=== PATIENT | female | born 1945 | race Caucasian/White ===

== ENCOUNTER 2017-07-14 12:14 | Emergency (ER) | payer MEDICARE, OTHER ==
[~2017-07-14] VITALS: Ht 152.4 cm; Wt 65.0 kg
[2017-07-14] MEDS ORDERED: SODIUM CHLORIDE FLUSH 10ML SYR IVF ONE (12:30)
[2017-07-14 12:46] LABS: HEMATOCRIT 50.4 % (34.6-47.8); HEMOGLOBIN 16.8 g/dL (11.7-16.4); WHITE BLOOD COUNT 7.9 x10^3/uL (3.4-10)
[2017-07-14 12:54] LABS: BLOOD UREA NITROGEN 18 mg/dL (7-18)
[2017-07-14 12:57] LABS: ASPARTATE AMINO TRANSFERASE 59 U/L (15-37); IS PT STATUS REG ER OR PRE ER? YES
[2017-07-14] MEDS ORDERED: PLEASE ENTER ALLERGIES MC SCH ×2 (13:00)
[2017-07-14] MEDS ORDERED: PLEASE ENTER HEIGHT AND WEIGHT MC SCH (13:00)
[2017-07-14 14:52] VITALS: BP 123/84
== END 2017-07-14 14:54 | disposition home or self-care (01) ==
LOC: ED 14:26
DX: I47.1 Supraventricular tachycardia (principal); J44.9 Chronic obstructive pulmonary disease, unspecified
CPT/HCPCS: 36415; 71010; 80053; 81003; 83880; 84484; 85025; 85610; 85730; 93005; 99285

== ENCOUNTER 2017-10-09 03:32 | Inpatient (IN) | payer MEDICARE ==
[~2017-10-09] VITALS: Ht 152.4 cm; Wt 74.5 kg
[2017-10-09] MEDS ORDERED: ALBUTEROL/IPRATROPIUM 2.5MG/0.5MG, 3 ML ONE (03:59)
[2017-10-09] MEDS ORDERED: methylPREDNISolone SOD SUCC 125 MG/2 ML IVP ONE (04:00)
[2017-10-09] MEDS ORDERED: SODIUM CHLORIDE 0.9% 1,000ML IVBOLUS ONE (04:00)
[2017-10-09] MEDS ORDERED: ALBUTEROL/IPRATROPIUM 2.5MG/0.5MG, 3 ML NPPB SCH ×2 (04:00→07:00)
[2017-10-09 04:07] LABS: HEMOGLOBIN 16.1 g/dL (11.7-16.4); WHITE BLOOD COUNT 8.5 x10^3/uL (3.4-10)
[2017-10-09] MEDS ORDERED: methylPREDNISolone SOD SUCC 125 MG/2 ML ONE ×2 (04:11→05:40)
[2017-10-09 04:20] LABS: BLOOD UREA NITROGEN 15 mg/dL (7-18)
[2017-10-09 04:25] LABS: IS PT STATUS REG ER OR PRE ER? YES
[2017-10-09] MEDS ORDERED: methylPREDNISolone SOD SUCC 40 MG/ML IVPush SCH (05:30)
[2017-10-09] MEDS: ENOXAPARIN 40 MG/0.4 ML SQ SCH (05:30)
[2017-10-09] MEDS ORDERED: LORazepam 1MG TABLET PO PRN (05:30)
[2017-10-09] MEDS ORDERED: LEVOFLOXACIN/PMX 500MG/100ML 100 ML ONE (05:30)
[2017-10-09] MEDS ORDERED: GUAIFENESIN/DM 200-20MG, 10ML UDC PO PRN (05:30)
[2017-10-09] MEDS ORDERED: ONDANSETRON 2MG/ML, 2ML IVPush PRN (05:30)
[2017-10-09] MEDS ORDERED: ACETAMINOPHEN 325 MG TABLET PO PRN (05:30)
[2017-10-09] MEDS ORDERED: hydrALAzine 20 MG/ML, 1ML IVPush PRN (05:30)
[2017-10-09] MEDS: LEVOFLOXACIN/PMX 500MG/100ML 100 ML IVPB SCH (05:30)
[2017-10-09] MEDS ORDERED: AZIT500T5 PO (07:47)
[2017-10-09] MEDS ORDERED: metoprolol ER PO (07:47)
[2017-10-09] MEDS ORDERED: IBUP-1484 PO (07:47)
[2017-10-09] MEDS ORDERED: CYCL5TAB PO (07:47)
[2017-10-09] MEDS: METOPROLOL SUCCINATE 50 MG TAB.ER.24H PO SCH (07:52)
[2017-10-09 08:04] VITALS: BP 126/75
[2017-10-09] MEDS: methylPREDNISolone SOD SUCC 125 MG/2 ML IVPush SCH ×2 (10:58→17:03)
[2017-10-09] MEDS: SODIUM CHLORIDE FLUSH 10ML SYR IVF SCH ×2 (10:58→21:00)
[2017-10-09 14:00] VITALS: BP 149/89
[2017-10-09 20:00] VITALS: BP 131/75
[2017-10-09] MEDS: ALBUTEROL/IPRATROPIUM 2.5MG/0.5MG, 3 ML NPPB PRN (21:43)
[2017-10-10 02:00] VITALS: BP 123/77
[2017-10-10] MEDS: methylPREDNISolone SOD SUCC 125 MG/2 ML IVPush SCH ×2 (02:20→09:07)
[2017-10-10] MEDS: ENOXAPARIN 40 MG/0.4 ML SQ SCH (05:30)
[2017-10-10] MEDS: LEVOFLOXACIN/PMX 500MG/100ML 100 ML IVPB SCH (05:42)
[2017-10-10] MEDS: METOPROLOL SUCCINATE 50 MG TAB.ER.24H PO SCH (05:55)
[2017-10-10 07:37] VITALS: BP 132/84
[2017-10-10] MEDS: SODIUM CHLORIDE FLUSH 10ML SYR IVF SCH (09:07)
[2017-10-10] MEDS: ALBUTEROL/IPRATROPIUM 2.5MG/0.5MG, 3 ML NPPB PRN (10:51)
[2017-10-10] MEDS ORDERED: PRED20TA PO (13:32)
== END 2017-10-10 16:00 | disposition home or self-care (01) | DRG 189 ==
LOC: ED 04:05 → EDIP 05:18 → 4EST 08:01 → DCLOUNGE 10-10 15:48
PROVIDERS: ADMIT Family Medicine; ATTEND Internal Medicine
DX: J96.01 Acute respiratory failure with hypoxia (principal); J44.1 Chronic obstructive pulmonary disease with (acute) exacerbation; E78.5 Hyperlipidemia, unspecified; Z82.5 Family history of asthma and other chronic lower respiratory diseases; Z87.891 Personal history of nicotine dependence; Z88.5 Allergy status to narcotic agent; Z88.0 Allergy status to penicillin; Z88.2 Allergy status to sulfonamides; Z90.49 Acquired absence of other specified parts of digestive tract
CPT/HCPCS: 36415; 71010; 80048; 82040; 84484; 85025; 93005; 94640; 96361; 96374; 96375; J1956; J7620; J2920; J2930; J7030

== ENCOUNTER 2017-10-12 01:52 | Emergency (ER) | payer MEDICARE ==
[~2017-10-12] VITALS: Ht 152.4 cm; Wt 70.0 kg
[~2017-10-12 01:52] MED LIST: AZIT500T5 PO; CYCL5TAB PO; IBUP-1484 PO; PRED20TA PO; metoprolol ER PO
[2017-10-12] MEDS ORDERED: ALBUTEROL/IPRATROPIUM 2.5MG/0.5MG, 3 ML NPPB ONE (02:30)
[2017-10-12] MEDS ORDERED: ALBUTEROL/IPRATROPIUM 2.5MG/0.5MG, 3 ML NPPB PRN (02:30)
[2017-10-12] MEDS ORDERED: GUAIFENESIN 100 MG/5 ML, 5ML UDC PO ONE (03:30)
[2017-10-12] MEDS ORDERED: HYDROcodone/APAP 7.5-325MG/15ML UDC PO ONE (04:00)
[2017-10-12] MEDS ORDERED: ONDANSETRON ODT 4 MG PO ONE (04:00)
[2017-10-12] MEDS ORDERED: HYDROcodone/APAP 7.5-325MG/15ML UDC ONE (04:48)
[2017-10-12] MEDS ORDERED: ONDANSETRON ODT 4 MG ONE (04:48)
[2017-10-12 05:30] VITALS: BP 113/67
== END 2017-10-12 06:09 | disposition home or self-care (01) ==
LOC: ED 02:54
DX: J41.1 Mucopurulent chronic bronchitis (principal); J44.9 Chronic obstructive pulmonary disease, unspecified
CPT/HCPCS: 71010; 93005; 94640; 99284; Q0162; J7620

== ENCOUNTER 2017-11-05 05:05 | Emergency (ER) | payer MEDICARE ==
[~2017-11-05] VITALS: Ht 152.4 cm; Wt 61.2 kg
[2017-11-05] MEDS ORDERED: FAMOTIDINE 20 MG TABLET ONE (05:52)
[2017-11-05] MEDS ORDERED: FAMOTIDINE 20 MG TABLET PO ONE (06:00)
[2017-11-05 06:28] VITALS: BP 137/77
== END 2017-11-05 07:33 | disposition home or self-care (01) ==
LOC: ED 06:20
DX: T37.8X5A Adverse effect of other specified systemic anti-infectives and antiparasitics, initial encounter (principal); L50.9 Urticaria, unspecified; J44.9 Chronic obstructive pulmonary disease, unspecified; Z87.891 Personal history of nicotine dependence
CPT/HCPCS: 93005; 99284; J7512; Q0177

== ENCOUNTER 2019-01-19 18:36 | Emergency (ER) | payer MEDICARE ==
[~2019-01-19] VITALS: Ht 152.4 cm; Wt 73.0 kg
[2019-01-19] MEDS ORDERED: ALBUTEROL/IPRATROPIUM 2.5MG/0.5MG, 3 ML NPPB ONE (19:00)
[2019-01-19] MEDS ORDERED: SODIUM CHLORIDE FLUSH 10ML SYR IVF ONE (19:00)
[2019-01-19 19:21] LABS: BASOPHILS # (AUTO) 0.05 x10^3/uL (0-0.1); BASOPHILS % (AUTO) 0 % (0-1); EOSINOPHILS # (AUTO) 0.16 x10^3/uL (0-0.4); EOSINOPHILS % (AUTO) 1 % (1-7); LYMPHOCYTES # (AUTO) 2.96 x10^3/uL (1-3.4); LYMPHOCYTES % (AUTO) 21 % (22-44); MD NO; MEAN CORPUSCULAR HEMOGLOBIN 30.4 pg (27.0-34.8); MEAN CORPUSCULAR HGB CONC 33.4 g/dL (32.4-35.8); MEAN CORPUSCULAR VOLUME 90.9 fL (80-100); MEAN PLATELET VOLUME 8.4 fL (7.4-10.4); MONOCYTES # (AUTO) 1.01 x10^3/uL (0.2-0.8); MONOCYTES % (AUTO) 7 % (2-9); NEUTROPHILS # (AUTO) 9.73 x10^3/uL (1.8-6.8); NEUTROPHILS % (AUTO) 70 % (42-75); PLATELET COUNT 367 x10^3/uL (130-400); RED BLOOD COUNT 5.36 x10^6/uL (3.82-5.3); RED CELL DISTRIBUTION WIDTH 13.3 % (9.6-15.2)
[2019-01-19] MEDS ORDERED: BUDESONIDE 0.5 MG/2 ML INHA ONE (19:30)
[2019-01-19] MEDS ORDERED: ALBUTEROL/IPRATROPIUM 2.5MG/0.5MG, 3 ML ONE (19:30)
[2019-01-19 19:33] LABS: ALBUMIN 3.9 g/dL (3.4-5.0); ANION GAP 6 mmol/L (5-15); CALCIUM 9.3 mg/dL (8.5-10.1); CHLORIDE 109 mmol/L (98-107); CREATININE 0.89 mg/dL (0.55-1.02)
[2019-01-19 19:40] LABS: RAPID INFLUENZA A Negative (Negative); RAPID INFLUENZA B Negative (Negative)
[2019-01-19] MEDS ORDERED: AZITHROMYCIN 500 MG TABLET ONE (20:43)
[2019-01-19 20:46] VITALS: BP 154/79
[2019-01-19] MEDS ORDERED: BUDESONIDE 0.5 MG/2 ML INHA INH SCH (21:00)
[2019-01-19] MEDS ORDERED: AZITHROMYCIN 500 MG TABLET PO ONE (21:00)
== END 2019-01-19 20:59 | disposition home or self-care (01) ==
LOC: ED 20:38
DX: B34.9 Viral infection, unspecified (principal); J44.9 Chronic obstructive pulmonary disease, unspecified; Z87.891 Personal history of nicotine dependence
CPT/HCPCS: 36415; 71045; 80048; 82040; 83605; 84145; 85025; 87040; 87400; 94640; 99284; J7620; J7626

== ENCOUNTER 2019-12-03 13:07 | Emergency (ER) | payer MEDICARE ==
[~2019-12-03] VITALS: Ht 152.4 cm; Wt 76.8 kg
[~2019-12-03 13:07] MED LIST changes: +AZIT500T10 PO; -AZIT500T5 PO; -IBUP-1484 PO; +IBUP-1902 PO
[2019-12-03] MEDS ORDERED: DILTIAZEM 125 MG in SODIUM CHLORIDE 0.9% 100 ML IV SCH (13:20)
[2019-12-03] MEDS ORDERED: DILTIAZEM 5 MG/ML, 5ML ONE (13:23)
[2019-12-03] MEDS ORDERED: SODIUM CHLORIDE FLUSH 10ML SYR IVF ONE (13:30)
[2019-12-03] MEDS ORDERED: DILTIAZEM 5 MG/ML, 5ML IV ONE (13:30)
--- NOTE | 2019-12-03 13:35 | NUR ---
dr cárdenas spoke with dr del rio
[2019-12-03] MEDS ORDERED: METO25TA35 PO (13:43)
--- NOTE | 2019-12-03 13:44 | NUR ---
LATE ENTRY FOR 1320, PT TO ROOM VIA WHEELCHAIR FROM TRIAGE. +AFIB, C/O SOB, DENIES CP. DR CANALES AT BEDSIDE. ORDER REC'D FOR 10MG DILTIAZIM. PIV ESTABLISHED AND LABS DRAWN, PT MED NOTED WITH EFFECT. CONVERTED TO NSR, DR CANALES INFORMED REPEAT EKG ORDERED.
--- NOTE | 2019-12-03 13:46 | NUR ---
PT TO TRAUMA BAY 1, SBAR RPT TO [facility] TRUONG.
[2019-12-03 13:55] LABS: BASOPHILS # (AUTO) 0.03 x10^3/uL (0-0.1); BASOPHILS % (AUTO) 0 % (0-1); EOSINOPHILS # (AUTO) 0.16 x10^3/uL (0-0.4); EOSINOPHILS % (AUTO) 2 % (1-7); LYMPHOCYTES # (AUTO) 3.29 x10^3/uL (1-3.4); LYMPHOCYTES % (AUTO) 36 % (22-44); MD NO; MEAN CORPUSCULAR HEMOGLOBIN 30.1 pg (27.0-34.8); MEAN CORPUSCULAR HGB CONC 32.8 g/dL (32.4-35.8); MEAN CORPUSCULAR VOLUME 91.6 fL (80-100); MEAN PLATELET VOLUME 9.1 fL (7.4-10.4); MONOCYTES # (AUTO) 0.65 x10^3/uL (0.2-0.8); MONOCYTES % (AUTO) 7 % (2-9); NEUTROPHILS # (AUTO) 4.96 x10^3/uL (1.8-6.8); NEUTROPHILS % (AUTO) 55 % (42-75); PLATELET COUNT 325 x10^3/uL (130-400); RED CELL DISTRIBUTION WIDTH 13.5 % (9.6-15.2)
[2019-12-03 14:04] LABS: ANION GAP 8 mmol/L (5-15); CALCIUM 9.7 mg/dL (8.5-10.1); CHLORIDE 106 mmol/L (98-107); CREATININE 0.93 mg/dL (0.55-1.02); T4 (THYROXINE) 10.2 mcg/dL (4.8-13.9)
[2019-12-03 14:07] LABS: INTERNATIONAL NORMALIZED RATIO 0.95 (0.93-1.1); PROTHROMBIN TIME 10.1 Seconds (9.6-11.5); TROPONIN I < 0.015 ng/mL (0.000-0.045)
[2019-12-03 15:01] VITALS: BP 132/78
== END 2019-12-03 15:44 | disposition home or self-care (01) ==
LOC: ED 13:41
DX: I48.91 Unspecified atrial fibrillation (principal); J44.9 Chronic obstructive pulmonary disease, unspecified; I10 Essential (primary) hypertension; F17.200 Nicotine dependence, unspecified, uncomplicated; R00.2 Palpitations; Z87.820 Personal history of traumatic brain injury
CPT/HCPCS: 36415; 71045; 80048; 82040; 83880; 84436; 84443; 84484; 85025; 85610; 85730; 93005; 96374